=== PATIENT | female | born 2000 | race Two or more races ===

== ENCOUNTER 2022-01-11 13:19 | Inpatient (IN) | payer OTHER ==
[~2022-01-11] VITALS: Ht 177.8 cm; Wt 1.4 kg
[2022-01-11] MEDS ORDERED: PRENATAL + DHA1 EAC1 PO (13:42)
== END 2022-01-18 16:11 | disposition home or self-care (01) | DRG 786 ==
LOC: LDR 13:19 → OB/GYN 01-13 09:15
PROVIDERS: ADMIT Obstetrics & Gynecology; ATTEND Obstetrics & Gynecology
PROC: BY4FZZZ Ultrasonography of Third Trimester, Single Fetus (ICD-10-PCS; 2022-01-11)
PROC: 4A1HXCZ Monitoring of Products of Conception, Cardiac Rate, External Approach (ICD-10-PCS; 2022-01-11)
PROC: 10D00Z1 Extraction of Products of Conception, Low, Open Approach (ICD-10-PCS; principal; 2022-01-17)
DX: O42.013 Preterm premature rupture of membranes, onset of labor within 24 hours of rupture, third trimester (principal); O60.14X0 Preterm labor third trimester with preterm delivery third trimester, not applicable or unspecified; Z3A.30 30 weeks gestation of pregnancy; Z37.0 Single live birth; Z20.822 Contact with and (suspected) exposure to COVID-19